=== PATIENT | female | born 1990 | race Caucasian/White ===

== ENCOUNTER 2023-07-13 12:53 | Emergency (ER) | payer BC, OTHER ==
[~2023-07-13] VITALS: Ht 160 cm; Wt 54.4 kg
[2023-07-13 13:56] VITALS: BP 134/90; TEMP 98.2; O2SAT 100
== END 2023-07-13 15:20 | disposition home or self-care (01) ==
LOC: ER 13:18
DX: S60.454A Superficial foreign body of right ring finger, initial encounter (principal); W22.8XXA Striking against or struck by other objects, initial encounter; Y93.89 Activity, other specified; Y92.89 Other specified places as the place of occurrence of the external cause; Y99.8 Other external cause status